=== PATIENT | male | born 2000 | race Caucasian/White ===

== ENCOUNTER 2018-03-19 16:32 | Inpatient (IN) | payer OTHER ==
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
[2018-03-19 17:28] LABS: PLATELET COUNT 218 10^3/uL (150-400)
[2018-03-19] MEDS ORDERED: OLANZapine DISINTEGR 5 MG TAB PO ONE ×2 (21:18→21:19)
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
--- NOTE | 2018-03-19 21:44 | ASMTTCLDSP ---
TLC Discharge Disposition Disposition: Answers: Admit Disposition Notes: Notes: In consultation with [facility] ED Physician, Filemon Florez MD and on-call Psychiatrist, John Levy both concurred that pt appears to meet 27-65 criteria regarding psychiatric hospitalization as pt appears to be at risk of harm to self due to a mental illness condition. Pt was given the 3[facility] prohibited belongings list while in the ED. Discharge Concerns/Recommendations: Notes: Pt admitted to [facility] Was patient given the Answers: Yes Inpatient Behavioral Health Prohibited Belongings List while in the ED? For inpatient John Levy admission, the following psychiatrist agreed to accept patient for admission to Behavioral Health ([facility]): Type of Hold: Answers: M1/72-hour Hold Hold initiated by: Answers: Court Order Date Signed: 03/19/2018 09:43 PM Electronically Signed By:Rosalinda Philip
[2018-03-20] MEDS ORDERED: MAGNESIUM HYDROXIDE 30 ML UDCUP PO PRN (00:08)
[2018-03-20] MEDS ORDERED: MAG HYDROX/AL HYDROX/SIMETH 30 ML UDCUP PO PRN (00:08)
[2018-03-20] MEDS ORDERED: NICOTINE POLACRILEX 2 MG GUM B PRN (00:08)
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
[2018-03-20] MEDS: OLANZapine DISINTEGR 10 MG TAB PO PRN ×2 (09:00→15:53)
[2018-03-20] MEDS: LORazepam 0.5 MG TAB PO PRN ×2 (09:00→15:53)
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
--- NOTE | 2018-03-20 14:23 | PDMN ---
Medical Necessity Medical necessity: Pt meets inpt criteria per MD order and [facility] [id number], Other Psychotic Disorders, Adult: Inpatient Care, 3 days. 17 y/o admitted w/ unspecified psychosis, on M1 hold due to being gravely disabled, requires inpt psychiatric hospitalization for current increased, acute agitiation and aggression.
--- NOTE | 2018-03-20 18:33 | BCON ---
INTERNAL MEDICINE CONSULTATION DATE OF CONSULTATION: 03/20/2018 REFERRING PHYSICIAN: John Levy MD REASON FOR REFERRAL: Medical clearance for inpatient behavioral health stay. HISTORY OF PRESENT ILLNESS: This patient came to the emergency department on a court-ordered M1 hold. His parents were concerned that he was becoming aggressive and was presenting a danger. He was admitted to the inpatient behavioral health unit for further psychiatric care. He is currently without any acute complaints. PAST MEDICAL HISTORY: He denies any history of medical illnesses or surgeries. MEDICATIONS: He was on no medications. SOCIAL HISTORY: He lives with his parents. He has not completed high school. He smokes marijuana. He denies tobacco or alcohol use. FAMILY HISTORY: Noncontributory. REVIEW OF SYSTEMS: He denies weight change. He has a good appetite. He denies nausea, vomiting, constipation or diarrhea. He denies any difficulty breathing and otherwise a 10-point review of systems is negative. PHYSICAL EXAM: VITAL SIGNS: Blood pressure is 124/72, heart rate is 83, respiratory rate is 14, oxygen saturation is 95% on room air. Temperature is 36.8 degrees centigrade. His weight is 63.5 kg for a body mass index of 21.3. GENERAL: This is a well-nourished, well-developed man who appears chronologic age, cooperative and in no acute distress. HEENT: Extraocular movements are intact. Pupils are equal, round, reactive to light. Mucous membranes are moist. Dentition is in good condition. NECK: Supple. HEART: Regular rate and rhythm with no murmurs, rubs or gallops. ABDOMEN: Benign. EXTREMITIES: There is no cyanosis, clubbing, or edema. NEUROLOGIC: He is alert and oriented x3. Cranial nerves 2-12 are grossly intact. There is no focal weakness and sensation is intact to light touch. LABORATORY STUDIES: CBC was overall normal with a slight decrement of eosinophils of no clinical significance. Serum chemistry revealed normal renal function and electrolytes, liver functions and lipid panel, hemoglobin A1c was normal at 5.2. Toxicology screen in the serum was negative for ethyl alcohol and urine was non-negative for marijuana, but otherwise negative for substances of abuse. ASSESSMENT/RECOMMENDATIONS: 1. Mental health issues pending further evaluation and management per psychiatry and the mental health team. 2. Marijuana use disorder. He might benefit from specific substance abuse counseling. I see no medical contraindications to this patient's continued stay on the inpatient behavioral health unit or to any psychiatric medications or procedures. Thank you very much for including me in the care of this patient and please do not hesitate to contact me or the hospitalist service should there be need for further medical evaluation. /[id number]/MODL MTDD
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
[2018-03-21] MEDS: OLANZapine DISINTEGR 10 MG TAB PO PRN (08:32)
[2018-03-21] MEDS: LORazepam 0.5 MG TAB PO PRN (08:32)
--- NOTE | 2018-03-21 12:18 | ASMTCMCOM ---
CM Note CM Note Notes: CC checked in with ct. Ct. has been staying in his room most of the time not engaging in unit activities or with other cts. Ct. appeared nerves and paranoid and was looking around while talking with CC. Ct. reported that his goals are to "get a job and get sober". He would like to get an apartment but when this CC discussed using [facility]" half-way upon discharge he said that he prefers to get back home. CC asked ct. if he spoke with his parents since his admission and he said that he doesn't want to speak with them. Date Signed: 03/21/2018 12:14 PM Electronically Signed By:Arlette Yuen
[2018-03-22] MEDS: OLANZapine DISINTEGR 10 MG TAB PO PRN ×2 (09:04→18:55)
[2018-03-22] MEDS: LORazepam 0.5 MG TAB PO PRN ×3 (09:04→18:54)
--- NOTE | 2018-03-22 09:05 | ASMTCMCOM ---
CM Note CM Note Notes: CC checked in with ct. while he was having breakfast. Ct. reported that he is doing OK and said that he is being discharged today. CC let ct. know that there is no talk about discharging him today and that the plan is to have him stay on the unit. Ct. became upset and wanted to know what's the reason he is not discharging even though his hold is up. CC explained that ct. is not yet stable enough to be discharged. CC discussed with ct. getting more engaged in groups and spending more time in the milieu but he said that he is not interested in doing that. Ct. escalated some and CC stopped the meeting. Ct. refused to sign a CHASE for parents. Date Signed: 03/22/2018 09:04 AM Electronically Signed By:Arlette Yuen
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
[2018-03-22] MEDS: OLANZapine 5 MG TAB PO SCH (18:58)
[2018-03-23] MEDS: LORazepam 0.5 MG TAB PO PRN ×3 (09:05→19:00)
[2018-03-23] MEDS: OLANZapine 5 MG TAB PO SCH ×4 (09:05→18:58)
--- NOTE | 2018-03-24 00:51 | SOAPPROG ---
SOAP Progress Note Assessment/Plan: Assessment: 17yo with hx of substance use and psychosis, admitted due to escalating agitation and aggression towards family and psychotic symptoms/behaviors. this is his first psychiatric hospitalization. 03/22/18 16:13 per staff, pt has been paranoid, guarded, wearing hoodie over head, isolative, not attending any groups, urinating in cups and leaving them around room. on M- 1. did take a prn zyprexa and ativan this am. mother contacted RN about pt calling and being threatening. case mgmt to f/ with m about this. pt was interviewed with security at door, and staff development educator present. he sat upright in bed for interview, kept hoodie on, eye contact was good but he often shifted gaze quickly and suspiciously toward male nurse, in paranoid hypervigilant manner, staring/glaring. possibly responding to internal stimuli although denied experiencing ah/vh or having any si/hi but also with no insight into reason for admission, did not note problems with urinating in cup, just stated he had to go often b/c of a "bladder problem", and angrily stated he did not feel he needed to be in the hospital, angry/hostile tone, angry/irritable affect, suspicious, guarded. no insight/poor jdgmt. A&O to person,place, situation. stated meds this am made him feel too groggy. pt was informed of his M-1 expiring this pm and of the options. he would like to be discharged. pt was informed the treatment providers did not feel he was clinically stable or safe for discharge. he was informed of being placed on a STC, and the certification as well as his rights incl right to legal representation were explained. pt was angry and asked to call his mother. PLAN: -placed on STC -cont on assault awareness and safety precautions -schedule zyprexa 5mg BID to avoid oversedation and encourage compliance, but will leave 5-10mg as prn due to his paranoia/psychosis. cont ativan prn. -consider phone restriction if making threats. mother apparently wanted unit to know about his calls, but presently fine with him still calling her. Objective: Vital Signs Temp Pulse Resp BP Pulse Ox 36.8 C 120 H 16 136/85 H 94 03/19/18 23:05 03/22/18 06:00 03/22/18 06:00 03/22/18 06:00 03/22/18 06:00 - Time Spent With Patient Time Spent With Patient: 20min - Pending Discharge Pending Discharge Within 24 Hours: No Pending Discharge Within 48 Hours: No ICD10 Worksheet Patient Problems: Problems Problem Status Onset Psychosis Acute
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
[2018-03-24] MEDS: OLANZapine 5 MG TAB PO SCH (08:34)
--- NOTE | 2018-03-24 11:07 | SOAPPROG ---
SOAP Progress Note Assessment/Plan: Assessment: Unspecified Psychosis. R/O Schizophrenia. No improvement noted. (see subjective/objective note). Patient is not safe to discharge at this time as patient continues to exhibit signs of psychosis, and express psychosis symptoms. Patient requires continued inpatient care because of current psychosis, and requires inpatient level of care to stabilize in order to no longer be gravely disabled due to mental illness. Patient could benefit from continued inpatient hospitalization for crisis stabilization, safety, and medication evaluation. Patient exhibits inability to provide for himself, unable communicate his basic needs, neglecting self-care, withdrawn from social interactions, inability to test reality, and currently shows inability to maintain any appropriate aspect of personal responsibility as an adult. Plan: 1. Psychotropic medications: After reviewing options, risks, and benefits patient agrees to continue current medications; agrees to increase HS Zyprexa to 10 mg. No other medication changes at this time as more time is needed to determine ongoing tolerability and efficacy. Plan is to continue to observe patient for response and side effects from medications, and ongoing monitoring and evaluation. 2. Review with patient informed consent and recommendations for psychotropic medication treatment listed below 3. Labs: no additional labs at this time 4. Therapy: continue milieu and group therapy 5. Further investigation including gathering information from patients relatives and review of past case records to inform treatment plan. 6. Safety/Wellness plan and follow-up outpatient appointments to be established prior to discharge. Next steps are for patient to meet with rn coronary care unit to plan a safe discharge plan and establish outpatient services for ongoing treatment. 7. Confer with inpatient treatment team regarding treatment plan. 8. Psychosocial stressors addressed through nurse case management 9. Legal status: [facility] 10. Consider discharge next week if patient is in stable condition, safe, and has a safe discharge plan. PSYCHOTROPIC MEDICATION TREATMENT INFORMED CONSENT and RECOMMENDATIONS: Review nature of condition, diagnosis, and prognosis. Review nature and purpose of psychotropic medication treatment. Review type of psychotropic medications being ordered. Review risk and benefits of psychotropic medication treatment. Review probable length of time patient will need to take medications. Review risk and benefits of not undergoing psychotropic medication treatment. Review alternative treatments to psychotropic medications. Review psychotropic medications contraindications, drug-drug interactions, side effects, and importance of reporting any side effects to a psychiatric provider or nurse during inpatient hospitalization, and upon discharge to patients psychiatric outpatient provider, primary care provider, or other health hospice care consultant. Review importance of asking a nurse, psychiatric provider, or primary care provider any questions or problems concerning the psychotropic medications. Verify patient understands the information that has been provided, and understands, accepts, and agrees to psychotropic medications. Review patients safety plan and importance of patient to report to staff while hospitalized if patient is ever a danger to self/others, or unable to care for self, and upon discharge, the importance for patient to contact [facility] or [facility], or go to the nearest emergency room, if patient is ever a danger to self/others, or unable to care for self. Recommend that upon discharge patient establish medication management treatment with a psychiatric provider, establishes routine therapy appointments, and follow-up with primary care provider. Verify patient understands and agrees to these recommendations. 03/24/18 11:09 Subjective: Following up with patient for evaluation of psychosis and safety. Patient reports, "Feeling better, a lot more calm and I have a plan to get out of here, a lot more focus and calm and not as paranoid. Still think my mom was able to mimic my ex-girl friends voice when she was talking to my dog. My mom would be talking to my dog and using my ex-girlfriends voice." Patient expresses the following psychiatric symptoms moderate anxiety. Patient reports taking medications as prescribed, and describes response to medications as okay. Patient does not report undesirable side effects from the medications, and agrees to continue current medications. Patient agrees to increase HS dose Zyprexa to 10 mg. Objective: Vital Signs Temp Pulse Resp BP Pulse Ox 36.8 C 120 H 16 136/85 H 94 03/19/18 23:05 03/22/18 06:00 03/22/18 06:00 03/22/18 06:00 03/22/18 06:00 NURSING REPORT: Consulted with nursing for update on patients progress in treatment. Nurses report patient is not engaged in treatment, is not attending groups, slept 8 hours, expresses the following psychiatric symptoms: severe anxiety, exhibits the following psychiatric symptoms: agitated, delusional, withdrawn; is eating all meals; staff reports patient continues to urinate in drinking cups; is agreeable to medications and taking as prescribed with no report of side effects, with no s/s of EPS/akathisia, and denies SI/HI, denies A /V hallucinations, and denies delusions. MSE: The patient is a well-nourished male looking stated chronological age. Attire is appropriate and dress is casual. Grooming status is appropriate. Ambulation is independent. Gait is normal and coordinated. Posture is normal and relaxed. Eye contact is inappropriate and avoided. Motor activity is appropriate with purposeful, organized, coordinated movements; with no involuntary movements. Attitude is cooperative. Patient appears fairly attentive and relates well to this interviewer. Language production is spontaneous. R/R/V normal. Articulation is clear. Patient reports mood as okay, with incongruent, constricted affect. Patients thought process non- linear and illogical. Patient does not report suicidal/homicidal thoughts, ideas, or plans. Patient denies auditory, visual hallucinations. Patient denies delusions. Patient does appear to be attending to internal stimuli. Patients attention and concentration are poor. Patient is oriented to person, place, and time. Patient appears to be a poor historian. Patients insight and judgment poor. - Time Spent With Patient Time Spent With Patient: 15 minutes, met with patient individually. - Pending Discharge Pending Discharge Within 24 Hours: No Pending Discharge Within 48 Hours: No ICD10 Worksheet Patient Problems: Problems Problem Status Onset Psychosis Acute
--- NOTE | 2018-03-24 13:26 | ASMTCMCOM ---
CM Note CM Note Notes: CC contacted [facility] at [phone] to discuss status of client as well as schedule out a family meeting to gather additional data/collateral information. Family meeting is set for Saturday (03/26/18) at 11:30am with provider, client and family. Date Signed: 03/24/2018 01:22 PM Electronically Signed By:Fredy Espinoza
[2018-03-24] MEDS: LORazepam 0.5 MG TAB PO PRN (19:11)
[2018-03-24] MEDS: MELATONIN 3 MG TAB PO PRN (19:11)
[2018-03-24] MEDS ORDERED: OLANZapine 10 MG TAB PO SCH (21:00)
[2018-03-25] MEDS: OLANZapine DISINTEGR 10 MG TAB PO PRN (08:35)
[2018-03-25] MEDS: LORazepam 0.5 MG TAB PO PRN ×2 (08:35→21:20)
[2018-03-25] MEDS ORDERED: OLANZapine 10 MG TAB PO SCH ×3 (10:49→21:00)
--- NOTE | 2018-03-25 10:53 | SOAPPROG ---
SOAP Progress Note Assessment/Plan: Assessment: Unspecified Psychosis. R/O Schizophrenia. No improvement noted. (see subjective/objective note). Patient is not safe to discharge at this time as patient continues to exhibit signs of psychosis, and express psychosis symptoms. Patient requires continued inpatient care because of current psychosis, and requires inpatient level of care to stabilize in order to no longer be gravely disabled due to mental illness. Patient could benefit from continued inpatient hospitalization for crisis stabilization, safety, and medication evaluation. Patient exhibits inability to provide for himself, unable communicate his basic needs, neglecting self-care, withdrawn from social interactions, inability to test reality, and currently shows inability to maintain any appropriate aspect of personal responsibility as an adult. Plan: 1. Psychotropic medications: After reviewing options, risks, and benefits patient agrees to continue current medications. No medication changes at this time as more time is needed to determine ongoing tolerability and efficacy. Plan is to continue to observe patient for response and side effects from medications, and ongoing monitoring and evaluation. 2. Review with patient informed consent and recommendations for psychotropic medication treatment listed below 3. Labs: no additional labs at this time 4. Therapy: continue milieu and group therapy 5. Further investigation including gathering information from patients relatives and review of past case records to inform treatment plan. 6. Safety/Wellness plan and follow-up outpatient appointments to be established prior to discharge. Next steps are for patient to meet with aged or disabled carer to plan a safe discharge plan and establish outpatient services for ongoing treatment. 7. Confer with inpatient treatment team regarding treatment plan. 8. Psychosocial stressors addressed through showcase maker 9. Legal status: [facility] 10. Consider discharge next week if patient is in stable condition, safe, and has a safe discharge plan. PSYCHOTROPIC MEDICATION TREATMENT INFORMED CONSENT and RECOMMENDATIONS: Review nature of condition, diagnosis, and prognosis. Review nature and purpose of psychotropic medication treatment. Review type of psychotropic medications being ordered. Review risk and benefits of psychotropic medication treatment. Review probable length of time patient will need to take medications. Review risk and benefits of not undergoing psychotropic medication treatment. Review alternative treatments to psychotropic medications. Review psychotropic medications contraindications, drug-drug interactions, side effects, and importance of reporting any side effects to a psychiatric provider or nurse during inpatient hospitalization, and upon discharge to patients psychiatric outpatient provider, primary care provider, or other health animal care supervisor. Review importance of asking a nurse, psychiatric provider, or primary care provider any questions or problems concerning the psychotropic medications. Verify patient understands the information that has been provided, and understands, accepts, and agrees to psychotropic medications. Review patients safety plan and importance of patient to report to staff while hospitalized if patient is ever a danger to self/others, or unable to care for self, and upon discharge, the importance for patient to contact [facility] or [facility], or go to the nearest emergency room, if patient is ever a danger to self/others, or unable to care for self. Recommend that upon discharge patient establish medication management treatment with a psychiatric provider, establishes routine therapy appointments, and follow-up with primary care provider. Verify patient understands and agrees to these recommendations. 03/25/18 10:54 Subjective: Following up with patient for evaluation of psychosis and safety. Patient reports, "Feeling okay, just tired." Patient expresses the following psychiatric symptoms moderate anxiety. Patient reports taking medications as prescribed, and describes response to medications as okay. Patient does not report undesirable side effects from the medications, and agrees to continue current medications. Patient reports not sleeping well last night, and reports having difficulty staying asleep. Objective: Vital Signs Temp Pulse Resp BP Pulse Ox 36.8 C 120 H 16 136/85 H 94 03/19/18 23:05 03/22/18 06:00 03/22/18 06:00 03/22/18 06:00 03/22/18 06:00 NURSING REPORT: Consulted with nursing for update on patients progress in treatment. Nurses report patient is not engaged in treatment, is not attending groups, slept 4 hours, expresses the following psychiatric symptoms: severe anxiety, exhibits the following psychiatric symptoms: paranoid, agitated, withdrawn, disorganized; is eating all meals; staff reports patient continues to urinate in drinking cups, was up middle of the night staring out window in his room; is agreeable to medications and taking as prescribed with no report of side effects, with no s/s of EPS/akathisia, and denies SI/HI, denies A/V hallucinations, and denies delusions. MSE: The patient is a well-nourished male looking stated chronological age. Attire is appropriate and dress is casual. Grooming status is appropriate. Ambulation is independent. Gait is normal and coordinated. Posture is normal and relaxed. Eye contact is inappropriate and avoided. Motor activity is appropriate with purposeful, organized, coordinated movements; with no involuntary movements. Attitude is cooperative. Patient appears fairly attentive and relates well to this interviewer. Language production is spontaneous. R/R/V normal. Articulation is clear. Patient reports mood as okay, with incongruent, constricted affect. Patients thought process non- linear and illogical, disorganized. Patient does not report suicidal/homicidal thoughts, ideas, or plans. Patient denies auditory, visual hallucinations. Patient reports delusions. Patient does appear to be attending to internal stimuli. Patients attention and concentration are poor. Patient is oriented to person, place, and time. Patient appears to be a poor historian. Patients insight and judgment poor. - Time Spent With Patient Time Spent With Patient: 15 minutes, met with patient individually. - Pending Discharge Pending Discharge Within 24 Hours: No Pending Discharge Within 48 Hours: No ICD10 Worksheet Patient Problems: Problems Problem Status Onset Psychosis Acute
[2018-03-25] MEDS: MELATONIN 3 MG TAB PO PRN (21:20)
[2018-03-26] MEDS ORDERED: LORazepam 0.5 MG TAB PO PRN (06:37)
[2018-03-26] MEDS ORDERED: OLANZapine 10 MG TAB PO SCH (06:37)
--- NOTE | 2018-03-26 08:48 | SOAPPROG ---
SOAP Progress Note Assessment/Plan: Assessment: Unspecified Psychosis. R/O Schizophrenia. No improvement noted. (see subjective/objective note). Patient is not safe to discharge at this time as patient continues to exhibit signs of psychosis, and express psychosis symptoms. Patient requires continued inpatient care because of current psychosis, and requires inpatient level of care to stabilize in order to no longer be gravely disabled due to mental illness. Patient could benefit from continued inpatient hospitalization for crisis stabilization, safety, and medication evaluation. Patient exhibits inability to provide for himself, unable communicate his basic needs, neglecting self-care, withdrawn from social interactions, inability to test reality, and currently shows inability to maintain any appropriate aspect of personal responsibility as an adult. Plan: 1. Psychotropic medications: After reviewing options, risks, and benefits patient agrees to continue current medications. No medication changes at this time as more time is needed to determine ongoing tolerability and efficacy. Plan is to continue to observe patient for response and side effects from medications, and ongoing monitoring and evaluation. 2. Review with patient informed consent and recommendations for psychotropic medication treatment listed below 3. Labs: no additional labs at this time 4. Therapy: continue milieu and group therapy 5. Further investigation including gathering information from patients relatives and review of past case records to inform treatment plan. 6. Safety/Wellness plan and follow-up outpatient appointments to be established prior to discharge. Next steps are for patient to meet with physician locums urgent care to plan a safe discharge plan and establish outpatient services for ongoing treatment. 7. Confer with inpatient treatment team regarding treatment plan. 8. Psychosocial stressors addressed through pillowcase maker 9. Legal status: [facility] 10. Consider discharge next week if patient is in stable condition, safe, and has a safe discharge plan. PSYCHOTROPIC MEDICATION TREATMENT INFORMED CONSENT and RECOMMENDATIONS: Review nature of condition, diagnosis, and prognosis. Review nature and purpose of psychotropic medication treatment. Review type of psychotropic medications being ordered. Review risk and benefits of psychotropic medication treatment. Review probable length of time patient will need to take medications. Review risk and benefits of not undergoing psychotropic medication treatment. Review alternative treatments to psychotropic medications. Review psychotropic medications contraindications, drug-drug interactions, side effects, and importance of reporting any side effects to a psychiatric provider or nurse during inpatient hospitalization, and upon discharge to patients psychiatric outpatient provider, primary care provider, or other health medicare compliance auditor. Review importance of asking a nurse, psychiatric provider, or primary care provider any questions or problems concerning the psychotropic medications. Verify patient understands the information that has been provided, and understands, accepts, and agrees to psychotropic medications. Review patients safety plan and importance of patient to report to staff while hospitalized if patient is ever a danger to self/others, or unable to care for self, and upon discharge, the importance for patient to contact [facility] or [facility], or go to the nearest emergency room, if patient is ever a danger to self/others, or unable to care for self. Recommend that upon discharge patient establish medication management treatment with a psychiatric provider, establishes routine therapy appointments, and follow-up with primary care provider. Verify patient understands and agrees to these recommendations. 03/26/18 08:46 Subjective: Following up with patient for evaluation of psychosis and safety. Patient reports, "I don't want to talk to you." Objective: Vital Signs Temp Pulse Resp BP Pulse Ox 36.8 C 120 H 16 136/85 H 94 03/19/18 23:05 03/22/18 06:00 03/22/18 06:00 03/22/18 06:00 03/22/18 06:00 NURSING REPORT: Consulted with nursing for update on patients progress in treatment. Nurses report patient is not engaged in treatment, is not attending groups, slept 8 hours, expresses the following psychiatric symptoms: severe anxiety, exhibits the following psychiatric symptoms: paranoid, withdrawn; is eating all meals; staff reports patient continues to urinate in urinal and store in room; is agreeable to medications and taking as prescribed with no report of side effects, with no s/s of EPS/akathisia, and denies SI/HI, denies A /V hallucinations, and denies delusions. MSE: The patient is a well-nourished male looking stated chronological age. Attire is appropriate and dress is casual. Grooming status is appropriate. Ambulation is independent. Gait is normal and coordinated. Posture is normal and relaxed. Eye contact is inappropriate and avoided. Motor activity is appropriate with purposeful, organized, coordinated movements; with no involuntary movements. Attitude is uncooperative. Patient appears distractible and does not relate well to this interviewer. Language production is spontaneous. R/R/V normal. Articulation is clear, with irritable, angry tone. Patient reports mood as okay, with incongruent, constricted affect. Patients thought process non-linear and illogical, disorganized. Patient does not report suicidal/homicidal thoughts, ideas, or plans. Patient denies auditory, visual hallucinations. Patient reports delusions. Patient does appear to be attending to internal stimuli. Patients attention and concentration are poor. Patient is oriented to person, place, and time. Patient appears to be a poor historian. Patients insight and judgment poor. - Time Spent With Patient Time Spent With Patient: 15 minutes, met with patient individually. - Pending Discharge Pending Discharge Within 24 Hours: No Pending Discharge Within 48 Hours: No ICD10 Worksheet Patient Problems: Problems Problem Status Onset Psychosis Acute
[2018-03-26] MEDS ORDERED: RISPERIDONE 1 MG ODT TAB SL ONE (11:01)
--- NOTE | 2018-03-26 12:34 | ASMTCMCOM ---
CM Note CM Note Notes: Client joined the treatment team meeting remained quite with no eye contact during interaction and eventually walked out of the meeting. Additionally, client allowed family meeting with [facility] and [facility], in which he requested this CC not participate. Client appears to be paranoid most of the time while isolating to his room and having minimal or no interaction with peers or staff. Provider suggested a trial of another medication starting today, etc. Date Signed: 03/26/2018 12:33 PM Electronically Signed By:Fredy Espinoza
[2018-03-26] MEDS: LORazepam 0.5 MG TAB PO PRN ×2 (17:45→22:03)
[2018-03-26] MEDS: MELATONIN 3 MG TAB PO PRN (20:55)
[2018-03-26] MEDS ORDERED: OLANZapine DISINTEGR 10 MG TAB PO SCH ×2 (21:00)
[2018-03-27] MEDS ORDERED: OLANZapine DISINTEGR 10 MG TAB PO SCH (06:34)
[2018-03-27] MEDS ORDERED: RISPERIDONE 2 MG ODT TAB SL SCH (09:00)
--- NOTE | 2018-03-27 09:04 | SOAPPROG ---
SOAP Progress Note Assessment/Plan: Assessment: Unspecified Psychosis. R/O Schizophrenia. No improvement noted. (see subjective/objective note). Patient is not safe to discharge at this time as patient continues to exhibit signs of psychosis, and express psychosis symptoms. Patient requires continued inpatient care because of current psychosis, and requires inpatient level of care to stabilize in order to no longer be gravely disabled due to mental illness. Patient could benefit from continued inpatient hospitalization for crisis stabilization, safety, and medication evaluation. Patient exhibits inability to provide for himself, unable communicate his basic needs, neglecting self-care, withdrawn from social interactions, inability to test reality, and currently shows inability to maintain any appropriate aspect of personal responsibility as an adult. Plan: 1. Psychotropic medications: After reviewing options, risks, and benefits patient agrees to continue current medications and agrees to increase Risperidone M-tab to 2 mg SL QD and decrease Zyprexa Zydis HS to 5 mg. No other medication changes at this time as more time is needed to determine ongoing tolerability and efficacy. Plan is to continue to observe patient for response and side effects from medications, and ongoing monitoring and evaluation. 2. Review with patient informed consent and recommendations for psychotropic medication treatment listed below 3. Labs: no additional labs at this time 4. Therapy: continue milieu and group therapy 5. Further investigation including gathering information from patients relatives and review of past case records to inform treatment plan. 6. Safety/Wellness plan and follow-up outpatient appointments to be established prior to discharge. Next steps are for patient to meet with restorative care technician to plan a safe discharge plan and establish outpatient services for ongoing treatment. 7. Confer with inpatient treatment team regarding treatment plan. 8. Psychosocial stressors addressed through pillowcase maker 9. Legal status: [facility] 10. Consider discharge next week if patient is in stable condition, safe, and has a safe discharge plan. PSYCHOTROPIC MEDICATION TREATMENT INFORMED CONSENT and RECOMMENDATIONS: Review nature of condition, diagnosis, and prognosis. Review nature and purpose of psychotropic medication treatment. Review type of psychotropic medications being ordered. Review risk and benefits of psychotropic medication treatment. Review probable length of time patient will need to take medications. Review risk and benefits of not undergoing psychotropic medication treatment. Review alternative treatments to psychotropic medications. Review psychotropic medications contraindications, drug-drug interactions, side effects, and importance of reporting any side effects to a psychiatric provider or nurse during inpatient hospitalization, and upon discharge to patients psychiatric outpatient provider, primary care provider, or other health plant health care technician. Review importance of asking a nurse, psychiatric provider, or primary care provider any questions or problems concerning the psychotropic medications. Verify patient understands the information that has been provided, and understands, accepts, and agrees to psychotropic medications. Review patients safety plan and importance of patient to report to staff while hospitalized if patient is ever a danger to self/others, or unable to care for self, and upon discharge, the importance for patient to contact [facility] or [facility], or go to the nearest emergency room, if patient is ever a danger to self/others, or unable to care for self. Recommend that upon discharge patient establish medication management treatment with a psychiatric provider, establishes routine therapy appointments, and follow-up with primary care provider. Verify patient understands and agrees to these recommendations. 03/27/18 09:04 Subjective: Following up with patient for evaluation of psychosis and safety. Patient reports, "Can you please leave, don't want to talk to you." Objective: Vital Signs Temp Pulse Resp BP Pulse Ox 36.8 C 120 H 16 136/85 H 94 03/19/18 23:05 03/22/18 06:00 03/22/18 06:00 03/22/18 06:00 03/22/18 06:00 NURSING REPORT: Consulted with nursing for update on patients progress in treatment. Nurses report patient is not engaged in treatment, is not attending groups, slept 6 hours, expresses the following psychiatric symptoms: severe anxiety, exhibits the following psychiatric symptoms: paranoid, withdrawn; is eating all meals; staff reports patient continues to urinate in urinal and store in room, patient found yesterday urinating in urinal in library; is agreeable to medications and taking as prescribed with no report of side effects , with no s/s of EPS/akathisia, and denies SI/HI, denies A/V hallucinations, and denies delusions. MSE: The patient is a well-nourished male looking stated chronological age. Attire is appropriate and dress is casual. Grooming status is appropriate. Ambulation is independent. Gait is normal and coordinated. Posture is normal and relaxed. Eye contact is inappropriate and avoided. Motor activity is appropriate with purposeful, organized, coordinated movements; with no involuntary movements. Attitude is uncooperative. Patient appears distractible and does not relate well to this interviewer. Language production is spontaneous. R/R/V normal. Articulation is clear, with irritable, angry tone. Patient reports mood as okay, with incongruent, constricted affect. Patients thought process non-linear and illogical, disorganized. Patient does not report suicidal/homicidal thoughts, ideas, or plans. Patient denies auditory, visual hallucinations. Patient reports delusions. Patient does appear to be attending to internal stimuli. Patients attention and concentration are poor. Patient is oriented to person, place, and time. Patient appears to be a poor historian. Patients insight and judgment poor. - Time Spent With Patient Time Spent With Patient: 15 minutes, met with patient individually. - Pending Discharge Pending Discharge Within 24 Hours: No Pending Discharge Within 48 Hours: No ICD10 Worksheet Patient Problems: Problems Problem Status Onset Psychosis Acute
[2018-03-27] MEDS: LORazepam 0.5 MG TAB PO PRN ×3 (09:13→21:03)
[2018-03-27] MEDS: MELATONIN 3 MG TAB PO PRN (20:23)
[2018-03-27] MEDS ORDERED: OLANZapine DISINTEGR 5 MG TAB PO SCH (21:00)
[2018-03-28] MEDS: LORazepam 0.5 MG TAB PO PRN ×2 (08:46→20:36)
[2018-03-28] MEDS: RISPERIDONE 1 MG ODT TAB SL SCH (08:46)
--- NOTE | 2018-03-28 11:14 | SOAPPROG ---
SOAP Progress Note Assessment/Plan: Assessment: Unspecified Psychosis. R/O Schizophrenia. No improvement noted. (see subjective/objective note). Patient is not safe to discharge at this time as patient continues to exhibit signs of psychosis, and express psychosis symptoms. Patient requires continued inpatient care because of current psychosis, and requires inpatient level of care to stabilize in order to no longer be gravely disabled due to mental illness. Patient could benefit from continued inpatient hospitalization for crisis stabilization, safety, and medication evaluation. Patient exhibits inability to provide for himself, unable communicate his basic needs, neglecting self-care, withdrawn from social interactions, inability to test reality, and currently shows inability to maintain any appropriate aspect of personal responsibility as an adult. Plan: 1. Psychotropic medications: After reviewing options, risks, and benefits patient agrees to continue current medications and agrees to increase Risperidone M-tab to 3 mg SL QD and discontinue Zyprexa Zydis HS to 5 mg. No other medication changes at this time as more time is needed to determine ongoing tolerability and efficacy. Plan is to continue to observe patient for response and side effects from medications, and ongoing monitoring and evaluation. 2. Review with patient informed consent and recommendations for psychotropic medication treatment listed below 3. Labs: no additional labs at this time 4. Therapy: continue milieu and group therapy 5. Further investigation including gathering information from patients relatives and review of past case records to inform treatment plan. 6. Safety/Wellness plan and follow-up outpatient appointments to be established prior to discharge. Next steps are for patient to meet with director of patient care to plan a safe discharge plan and establish outpatient services for ongoing treatment. 7. Confer with inpatient treatment team regarding treatment plan. 8. Psychosocial stressors addressed through counseling case manager 9. Legal status: [facility] 10. Consider discharge next week if patient is in stable condition, safe, and has a safe discharge plan. PSYCHOTROPIC MEDICATION TREATMENT INFORMED CONSENT and RECOMMENDATIONS: Review nature of condition, diagnosis, and prognosis. Review nature and purpose of psychotropic medication treatment. Review type of psychotropic medications being ordered. Review risk and benefits of psychotropic medication treatment. Review probable length of time patient will need to take medications. Review risk and benefits of not undergoing psychotropic medication treatment. Review alternative treatments to psychotropic medications. Review psychotropic medications contraindications, drug-drug interactions, side effects, and importance of reporting any side effects to a psychiatric provider or nurse during inpatient hospitalization, and upon discharge to patients psychiatric outpatient provider, primary care provider, or other health healthcare social worker. Review importance of asking a nurse, psychiatric provider, or primary care provider any questions or problems concerning the psychotropic medications. Verify patient understands the information that has been provided, and understands, accepts, and agrees to psychotropic medications. Review patients safety plan and importance of patient to report to staff while hospitalized if patient is ever a danger to self/others, or unable to care for self, and upon discharge, the importance for patient to contact [facility] or [facility], or go to the nearest emergency room, if patient is ever a danger to self/others, or unable to care for self. Recommend that upon discharge patient establish medication management treatment with a psychiatric provider, establishes routine therapy appointments, and follow-up with primary care provider. Verify patient understands and agrees to these recommendations. 03/28/18 11:14 Subjective: Following up with patient for evaluation of psychosis and safety. Patient reports, "Doing okay. Just want to know when I can discharge. I know I need to try to get along with everyone." Patient reports no side effects from current medications, and agrees to continue current medications, agrees to increase Risperidone M-tab to 3 mg and discontinue Zyprexa HS. Objective: Vital Signs Temp Pulse Resp BP Pulse Ox 36.8 C 120 H 16 136/85 H 94 03/19/18 23:05 03/22/18 06:00 03/22/18 06:00 03/22/18 06:00 03/22/18 06:00 NURSING REPORT: Consulted with nursing for update on patients progress in treatment. Nurses report patient is not engaged in treatment, is not attending groups, slept 6 hours, expresses the following psychiatric symptoms: severe anxiety, exhibits the following psychiatric symptoms: paranoid, withdrawn; is eating all meals; staff reports patient continues to urinate in urinal and store in room; is agreeable to medications and taking as prescribed with no report of side effects, with no s/s of EPS/akathisia, and denies SI/HI, denies A /V hallucinations, and denies delusions. RN NOTE FROM 03/27/18: Patient was present in milieu for portions of shift, pt is withdrawn with hoodie of sweatshirt up. Pt still continues to machine spreader corners of room in the dark. Pt continues to utilize urinal in his room. Patient requested PRN Ativan twice this shift. MSE: The patient is a well-nourished male looking stated chronological age. Attire is appropriate and dress is casual. Grooming status is appropriate. Ambulation is independent. Gait is normal and coordinated. Posture is normal and relaxed. Eye contact is inappropriate and avoided. Motor activity is appropriate with purposeful, organized, coordinated movements; with no involuntary movements. Attitude is uncooperative. Patient appears distractible and does not relate well to this interviewer. Language production is spontaneous. R/R/V normal. Articulation is clear, with irritable, angry tone. Patient reports mood as okay, with incongruent, constricted affect. Patients thought process non-linear and illogical, disorganized. Patient does not report suicidal/homicidal thoughts, ideas, or plans. Patient denies auditory, visual hallucinations. Patient reports delusions. Patient does appear to be attending to internal stimuli. Patients attention and concentration are poor. Patient is oriented to person, place, and time. Patient appears to be a poor historian. Patients insight and judgment poor. - Time Spent With Patient Time Spent With Patient: 15 minutes, met with patient individually. - Pending Discharge Pending Discharge Within 24 Hours: No Pending Discharge Within 48 Hours: No ICD10 Worksheet Patient Problems: Problems Problem Status Onset Psychosis Acute
--- NOTE | 2018-03-28 11:26 | ASMTBHDC ---
Notes Note: Notes: CC spoke with Taisha at [facility] who reported that they did not receive the referral faxed to them. Their fax number is [phone]. Direct phone number to schedule the appointment is [phone]. Per Taisha they are able to offer appointments within 24 hrs as needed. Date Signed: 03/28/2018 11:26 AM Electronically Signed By:Arlette Yuen
--- NOTE | 2018-03-28 12:04 | ASMTCMCOM ---
CM Note CM Note Notes: CC checked in with ct. He was in bed but agreed to come out of his room. Ct. reported that he feels very tired and said "I feel there's a lot of weight on me". He was not able to elaborate further. Affect is very flat. CC asked ct. about participating in groups and he has been saying that he participate in some especially in the afternoon. He was given a schedule of the groups, per his request. Date Signed: 03/28/2018 12:04 PM Electronically Signed By:Arlette Yuen
[2018-03-28] MEDS: MELATONIN 3 MG TAB PO PRN (20:36)
[2018-03-29] MEDS: RISPERIDONE 1 MG ODT TAB SL SCH (08:20)
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
[2018-03-29] MEDS: LORazepam 0.5 MG TAB PO PRN ×2 (15:44→20:13)
[2018-03-29] MEDS: MELATONIN 3 MG TAB PO PRN (20:01)
[2018-03-29] MEDS: risperiDONE 0.5 MG TAB PO PRN ×2 (20:01→21:47)
[2018-03-30] MEDS: RISPERIDONE 1 MG ODT TAB SL SCH (08:33)
[2018-03-30] MEDS: LORazepam 0.5 MG TAB PO PRN (15:04)
[2018-03-30] MEDS: MELATONIN 3 MG TAB PO PRN (21:12)
[2018-03-30] MEDS: risperiDONE 0.5 MG TAB PO PRN (21:12)
--- NOTE | 2018-03-30 21:54 | SOAPPROG ---
SOAP Progress Note Assessment/Plan: Assessment: 03/30/18 14:58 per staff, slept 7hr. has been noted to be more conversant and less tense overall. denied any complaints. no med s/e except thinks medication "making me depressed ". briefly interviewed in milieu. MSE: casually dressed. still with hoodie over head. fair e/c. nml speech rate/ vol. more readily engaging, affect restricted, not noted hypervigilant as last week. was expressing paranoid thoughts/ ideas of reference about his mother yesterday. and paranoid feelings in group setting. denied AH/VH and did not appear responding to int stim. denied SI or thoughts to harm others. poor insight, impaired jdgmt. PLAN: -has STC hearing this week. ambivalent. wants to leave hospital but worried about court. Consider having pt stipulate? Would be good if STC could txf to community to help keep him in treatment, francesco given his lack of insight and questionable motivation for continued outpt treatment. -added Risperdal 0.5mg bid prn to 3mg qday. not using prn. monitor for any EPS at higher dose. consider HALL? -monitor use of prn Ativan. using 2-3mg/day, used 2mg total yesterday. consider decr to 0.5mg -cont education about THC and psychosis. WEALTH MANAGEMENT ADVISOR student provided with some reading material yesterday. Has easy access from parents' home, at neighbors' [employer] house. -ensure attendance in groups perhaps q shift to monitor readiness for d/c. pt continued to express paranoia about mother and in general about peers (see note 2/2). -consider change risperdal to hs dosing. f/u on feelings of "depressed" he is attributing to medication -note elevated HR 03/22, has refused VS since. change to daily during day when awake since refuses at 6am. Note Risperdal may cause tachycardia. Objective: Vital Signs Temp Pulse Resp BP Pulse Ox 36.8 C 120 H 16 136/85 H 94 03/19/18 23:05 03/22/18 06:00 03/22/18 06:00 03/22/18 06:00 03/22/18 06:00 - Time Spent With Patient Time Spent With Patient: 10min - Pending Discharge Pending Discharge Within 24 Hours: No Pending Discharge Within 48 Hours: No ICD10 Worksheet Patient Problems: Problems Problem Status Onset Psychosis Acute
[2018-03-31] MEDS ORDERED: LORazepam 0.5 MG TAB PO PRN (06:55)
--- NOTE | 2018-03-31 08:22 | SOAPPROG ---
SOAP Progress Note Assessment/Plan: Assessment: Unspecified Psychosis. R/O Schizophrenia. No improvement noted. (see subjective/objective note). Patient is not safe to discharge at this time as patient continues to exhibit signs of psychosis, and express psychosis symptoms. Patient requires continued inpatient care because of current psychosis, and requires inpatient level of care to stabilize in order to no longer be gravely disabled due to mental illness. Patient could benefit from continued inpatient hospitalization for crisis stabilization, safety, and medication evaluation. Patient exhibits inability to provide for himself, unable communicate his basic needs, neglecting self-care, withdrawn from social interactions, inability to test reality, and currently shows inability to maintain any appropriate aspect of personal responsibility as an adult. Plan: 1. Psychotropic medications: After reviewing options, risks, and benefits patient agrees to continue current medications and agrees to increase Risperidone M-tab to 4 mg SL QD. No other medication changes at this time as more time is needed to determine ongoing tolerability and efficacy. Plan is to continue to observe patient for response and side effects from medications, and ongoing monitoring and evaluation. 2. Review with patient informed consent and recommendations for psychotropic medication treatment listed below 3. Labs: no additional labs at this time 4. Therapy: continue milieu and group therapy 5. Further investigation including gathering information from patients relatives and review of past case records to inform treatment plan. 6. Safety/Wellness plan and follow-up outpatient appointments to be established prior to discharge. Next steps are for patient to meet with intensive care medicine specialist to plan a safe discharge plan and establish outpatient services for ongoing treatment. 7. Confer with inpatient treatment team regarding treatment plan. 8. Psychosocial stressors addressed through major case detective 9. Legal status: [facility] 10. Consider discharge next week if patient is in stable condition, safe, and has a safe discharge plan. PSYCHOTROPIC MEDICATION TREATMENT INFORMED CONSENT and RECOMMENDATIONS: Review nature of condition, diagnosis, and prognosis. Review nature and purpose of psychotropic medication treatment. Review type of psychotropic medications being ordered. Review risk and benefits of psychotropic medication treatment. Review probable length of time patient will need to take medications. Review risk and benefits of not undergoing psychotropic medication treatment. Review alternative treatments to psychotropic medications. Review psychotropic medications contraindications, drug-drug interactions, side effects, and importance of reporting any side effects to a psychiatric provider or nurse during inpatient hospitalization, and upon discharge to patients psychiatric outpatient provider, primary care provider, or other health care management assistant. Review importance of asking a nurse, psychiatric provider, or primary care provider any questions or problems concerning the psychotropic medications. Verify patient understands the information that has been provided, and understands, accepts, and agrees to psychotropic medications. Review patients safety plan and importance of patient to report to staff while hospitalized if patient is ever a danger to self/others, or unable to care for self, and upon discharge, the importance for patient to contact [facility] or [facility], or go to the nearest emergency room, if patient is ever a danger to self/others, or unable to care for self. Recommend that upon discharge patient establish medication management treatment with a psychiatric provider, establishes routine therapy appointments, and follow-up with primary care provider. Verify patient understands and agrees to these recommendations. 03/31/18 08:23 Subjective: Following up with patient for evaluation of psychosis and safety. Patient reports, "Doing okay. Just wanting to know when will be leaving here?" Patient reports no side effects from current medications, and agrees to continue current medications, agrees to increase Risperidone M-tab to 4 mg SL QD. Objective: Vital Signs Temp Pulse Resp BP Pulse Ox 36.8 C 120 H 16 136/85 H 94 03/19/18 23:05 03/22/18 06:00 03/22/18 06:00 03/22/18 06:00 03/22/18 06:00 NURSING REPORT: Consulted with nursing for update on patients progress in treatment. Nurses report patient is not engaged in treatment, is not attending groups, slept 8 hours, expresses the following psychiatric symptoms: severe anxiety, exhibits the following psychiatric symptoms: paranoid, withdrawn; is eating all meals; staff reports patient continues to urinate in urinal and store in room; is agreeable to medications and taking as prescribed with no report of side effects, with no s/s of EPS/akathisia, and denies SI/HI, denies A /V hallucinations, and denies delusions. FAMILY MEETING WITH MOP: scheduled for 04/01/18. RN FROM 03/30/18: Patient still withdrawn to room and urinating in cup or hand- held urinal. Patient eating in dining, eating >75% of meal. Mood is less tense and patient more conversant with staff and peers. MSE: The patient is a well-nourished male looking stated chronological age. Attire is appropriate and dress is casual. Grooming status is appropriate. Ambulation is independent. Gait is normal and coordinated. Posture is normal and relaxed. Eye contact is inappropriate and avoided. Motor activity is appropriate with purposeful, organized, coordinated movements; with no involuntary movements. Attitude is uncooperative. Patient appears distractible and does not relate well to this interviewer. Language production is spontaneous. R/R/V normal. Articulation is clear, with irritable. Patient reports mood as okay, with incongruent, constricted affect. Patients thought process non-linear and illogical, disorganized. Patient does not report suicidal/homicidal thoughts, ideas, or plans. Patient denies auditory, visual hallucinations. Patient reports delusions. Patient does appear to be attending to internal stimuli. Patients attention and concentration are poor. Patient is oriented to person, place, and time. Patient appears to be a poor historian. Patients insight and judgment poor. - Time Spent With Patient Time Spent With Patient: 15 minutes, met with patient individually. - Pending Discharge Pending Discharge Within 24 Hours: No Pending Discharge Within 48 Hours: No ICD10 Worksheet Patient Problems: Problems Problem Status Onset Psychosis Acute
[2018-03-31] MEDS: RISPERIDONE 1 MG ODT TAB SL SCH (08:51)
--- NOTE | 2018-03-31 13:30 | ASMTCMCOM ---
CM Note CM Note Notes: CC was able to confirm client's insurance information and pass it along to FC. Also, confirmed family meeting for client, parents, CC and provider for tomorrow at noon. Client is still isolating some, doing a bit better; however, still requires in-patient level of care. Date Signed: 03/31/2018 01:28 PM Electronically Signed By:Fredy Espinoza
[2018-03-31] MEDS: risperiDONE 0.5 MG TAB PO PRN (20:13)
[2018-03-31] MEDS: MELATONIN 3 MG TAB PO PRN (20:13)
[2018-04-01] MEDS: RISPERIDONE 1 MG ODT TAB SL SCH (08:15)
--- NOTE | 2018-04-01 08:30 | SOAPPROG ---
SOAP Progress Note Assessment/Plan: Assessment: Unspecified Psychosis. R/O Schizophrenia. Slight improvement noted. (see subjective/objective note). Patient is not safe to discharge at this time as patient continues to exhibit signs of psychosis, and express psychosis symptoms. Patient requires continued inpatient care because of current psychosis, and requires inpatient level of care to stabilize in order to no longer be gravely disabled due to mental illness. Patient could benefit from continued inpatient hospitalization for crisis stabilization, safety, and medication evaluation. Patient exhibits inability to provide for himself, unable communicate his basic needs, neglecting self-care, withdrawn from social interactions, inability to test reality, and currently shows inability to maintain any appropriate aspect of personal responsibility as an adult. Plan: 1. Psychotropic medications: After reviewing options, risks, and benefits patient agrees to continue current medications. No medication changes at this time as more time is needed to determine ongoing tolerability and efficacy. Plan is to continue to observe patient for response and side effects from medications, and ongoing monitoring and evaluation. 2. Review with patient informed consent and recommendations for psychotropic medication treatment listed below 3. Labs: no additional labs at this time 4. Therapy: continue milieu and group therapy 5. Further investigation including gathering information from patients relatives and review of past case records to inform treatment plan. 6. Safety/Wellness plan and follow-up outpatient appointments to be established prior to discharge. Next steps are for patient to meet with career advisor to plan a safe discharge plan and establish outpatient services for ongoing treatment. 7. Confer with inpatient treatment team regarding treatment plan. 8. Psychosocial stressors addressed through nurse case management 9. Legal status: [facility] 10. Consider discharge next week if patient is in stable condition, safe, and has a safe discharge plan. PSYCHOTROPIC MEDICATION TREATMENT INFORMED CONSENT and RECOMMENDATIONS: Review nature of condition, diagnosis, and prognosis. Review nature and purpose of psychotropic medication treatment. Review type of psychotropic medications being ordered. Review risk and benefits of psychotropic medication treatment. Review probable length of time patient will need to take medications. Review risk and benefits of not undergoing psychotropic medication treatment. Review alternative treatments to psychotropic medications. Review psychotropic medications contraindications, drug-drug interactions, side effects, and importance of reporting any side effects to a psychiatric provider or nurse during inpatient hospitalization, and upon discharge to patients psychiatric outpatient provider, primary care provider, or other health medicare biller. Review importance of asking a nurse, psychiatric provider, or primary care provider any questions or problems concerning the psychotropic medications. Verify patient understands the information that has been provided, and understands, accepts, and agrees to psychotropic medications. Review patients safety plan and importance of patient to report to staff while hospitalized if patient is ever a danger to self/others, or unable to care for self, and upon discharge, the importance for patient to contact [facility] or [facility], or go to the nearest emergency room, if patient is ever a danger to self/others, or unable to care for self. Recommend that upon discharge patient establish medication management treatment with a psychiatric provider, establishes routine therapy appointments, and follow-up with primary care provider. Verify patient understands and agrees to these recommendations. 04/01/18 08:28 Subjective: Following up with patient for evaluation of psychosis and safety. Patient reports, "Doing okay. Look forward to meeting with my mom today, I miss her." Patient reports no side effects from current medications, and agrees to continue current medications. Patient reports he is not interested in [facility], and agrees to continue oral Risperidone after discharge. Objective: Vital Signs Temp Pulse Resp BP Pulse Ox 36.8 C 120 H 16 136/85 H 94 03/19/18 23:05 03/22/18 06:00 03/22/18 06:00 03/22/18 06:00 03/22/18 06:00 NURSING REPORT: Consulted with nursing for update on patients progress in treatment. Nurses report patient is not engaged in treatment, is not attending groups, slept 8 hours, expresses the following psychiatric symptoms: severe anxiety, exhibits the following psychiatric symptoms: paranoid, withdrawn; is eating all meals; staff reports patient continues to urinate in urinal and store in room; is agreeable to medications and taking as prescribed with no report of side effects, with no s/s of EPS/akathisia, and denies SI/HI, denies A /V hallucinations, and denies delusions. RN FROM 03/31/18: Willian remains very calm, visible on milieu. Came to nursing station, at own volition, and asked for evening meds. Took them with a full glass of water, then stood there conversing with staff for a few additional minutes. No attempt to cheek meds, or pocket them, noted. FAMILY MEETING: This CORK FLOOR INSTALLER and patient to meet with patients mother today to assess readiness to discharge, review treatment plan, goals for hospitalization , and discharge plan. MSE: The patient is a well-nourished male looking stated chronological age. Attire is appropriate and dress is casual. Grooming status is appropriate. Ambulation is independent. Gait is normal and coordinated. Posture is normal and relaxed. Eye contact is inappropriate and avoided. Motor activity is appropriate with purposeful, organized, coordinated movements; with no involuntary movements. Attitude is cooperative. Patient appears attentive and relates well to this interviewer. Language production is spontaneous. R/R/V normal. Articulation is clear with appropriate tone. Patient reports mood as okay with congruent affect. Patients thought process linear and illogical with no signs of formal thought disorder. Patient continues to present paranoid; suspicious. Patient does not report suicidal/homicidal thoughts, ideas, or plans. Patient denies auditory, visual hallucinations. Patient reports delusions. Patient does appear to be attending to internal stimuli. Patients attention and concentration are poor. Patient is oriented to person, place, and time. Patient appears to be a poor historian. Patients insight and judgment poor. - Time Spent With Patient Time Spent With Patient: 15 minutes, met with patient individually. - Pending Discharge Pending Discharge Within 24 Hours: No Pending Discharge Within 48 Hours: No ICD10 Worksheet Patient Problems: Problems Problem Status Onset Psychosis Acute
[2018-04-01] MEDS ORDERED: PALIPERIDONE PALMITATE 234 MG/1.5 ML SYR IM ONE ×2 (09:00→12:26)
[2018-04-01] MEDS: LORazepam 1 MG TAB PO PRN (11:12)
--- NOTE | 2018-04-01 12:46 | ASMTBHDC ---
Notes Note: Notes: Client presented well in family meeting today with parents, CC and provider. Client agreed to take Invega injection, etc. CC refaxed all necessary ppw to [facility] at . CC called [facility] at to schedule client's intake appts, etc. They noted for CC to "re-fax everything, and call back on or Saturday because they only schedule 24-hours from discharge from a hospital." Family has agreed to take client back home with meds, etc. and the proper follow up.* Date Signed: 04/01/2018 12:46 PM Electronically Signed By:Fredy Espinoza
[2018-04-01] MEDS: ACETAMINOPHEN 325 MG TAB PO PRN (13:29)
--- NOTE | 2018-04-01 15:12 | ASMTBHDC ---
Notes Note: Notes: CC was able to confirm client's intake appt with Adela at [facility]: Follow up with: [facility] [address] [address] PH- FAX- Intake Appt: Scheduled with Adela on SaturdayApril 08 (04/08/18) at 2pm. Additional Resources: [facility] Address: [address] [place] [id number] Hours: Open 24 hours Drop-In Center: Open every day of the year 12:30PM 5:00PM Overnight Emergency Snf: Open every night of the year 5:00PM 8:00AM Date Signed: 04/01/2018 03:11 PM Electronically Signed By:Fredy Espinoza
[2018-04-01] MEDS: MELATONIN 3 MG TAB PO PRN (20:09)
--- NOTE | 2018-04-02 08:11 | SOAPPROG ---
SOAP Progress Note Assessment/Plan: Assessment: Unspecified Psychosis. R/O Schizophrenia. Slight improvement noted. (see subjective/objective note). Patient is not safe to discharge at this time as patient continues to exhibit signs of psychosis, and express psychosis symptoms. Patient requires continued inpatient care because of current psychosis, and requires inpatient level of care to stabilize in order to no longer be gravely disabled due to mental illness. Patient could benefit from continued inpatient hospitalization for crisis stabilization, safety, and medication evaluation. Patient exhibits inability to provide for himself, unable communicate his basic needs, neglecting self-care, withdrawn from social interactions, inability to test reality, and currently shows inability to maintain any appropriate aspect of personal responsibility as an adult. Plan: 1. Psychotropic medications: After reviewing options, risks, and benefits patient agrees to continue current medications. No medication changes at this time as more time is needed to determine ongoing tolerability and efficacy. Plan is to continue to observe patient for response and side effects from medications, and ongoing monitoring and evaluation. 2. Review with patient informed consent and recommendations for psychotropic medication treatment listed below 3. Labs: no additional labs at this time 4. Therapy: continue milieu and group therapy 5. Further investigation including gathering information from patients relatives and review of past case records to inform treatment plan. 6. Safety/Wellness plan and follow-up outpatient appointments to be established prior to discharge. Next steps are for patient to meet with home care manager to plan a safe discharge plan and establish outpatient services for ongoing treatment. 7. Confer with inpatient treatment team regarding treatment plan. 8. Psychosocial stressors addressed through case aide 9. Legal status: [facility] 10. Consider discharge next week if patient is in stable condition, safe, and has a safe discharge plan. PSYCHOTROPIC MEDICATION TREATMENT INFORMED CONSENT and RECOMMENDATIONS: Review nature of condition, diagnosis, and prognosis. Review nature and purpose of psychotropic medication treatment. Review type of psychotropic medications being ordered. Review risk and benefits of psychotropic medication treatment. Review probable length of time patient will need to take medications. Review risk and benefits of not undergoing psychotropic medication treatment. Review alternative treatments to psychotropic medications. Review psychotropic medications contraindications, drug-drug interactions, side effects, and importance of reporting any side effects to a psychiatric provider or nurse during inpatient hospitalization, and upon discharge to patients psychiatric outpatient provider, primary care provider, or other health home care consultant. Review importance of asking a nurse, psychiatric provider, or primary care provider any questions or problems concerning the psychotropic medications. Verify patient understands the information that has been provided, and understands, accepts, and agrees to psychotropic medications. Review patients safety plan and importance of patient to report to staff while hospitalized if patient is ever a danger to self/others, or unable to care for self, and upon discharge, the importance for patient to contact [facility] or [facility], or go to the nearest emergency room, if patient is ever a danger to self/others, or unable to care for self. Recommend that upon discharge patient establish medication management treatment with a psychiatric provider, establishes routine therapy appointments, and follow-up with primary care provider. Verify patient understands and agrees to these recommendations. 04/01/18 08:28 Subjective: Following up with patient for evaluation of psychosis and safety. Patient reports, "Doing okay." Patient reports no side effects from current medications , and agrees to continue current medications. Patient agrees to Invega Sustenna second loading dose 156 mg IM on Saturday prior to discharge. Patient agrees to sign-in for voluntary hospitalization. Objective: Vital Signs Temp Pulse Resp BP Pulse Ox 36.8 C 103 H 16 120/62 95 04/01/18 13:15 04/01/18 13:15 04/01/18 13:15 04/01/18 13:15 04/01/18 13:15 NURSING REPORT: Consulted with nursing for update on patients progress in treatment. Nurses report patient is not engaged in treatment, is not attending groups, slept 8 hours, expresses the following psychiatric symptoms: moderate anxiety, exhibits the following psychiatric symptoms: paranoid, withdrawn; is eating all meals; staff reports patient continues to urinate in urinal and store in room; is agreeable to medications and taking as prescribed with no report of side effects, with no s/s of EPS/akathisia, and denies SI/HI, denies A /V hallucinations, and denies delusions. MSE: The patient is a well-nourished male looking stated chronological age. Attire is appropriate and dress is casual. Grooming status is appropriate. Ambulation is independent. Gait is normal and coordinated. Posture is normal and relaxed. Eye contact is inappropriate and avoided. Motor activity is appropriate with purposeful, organized, coordinated movements; with no involuntary movements. Attitude is cooperative. Patient appears attentive and relates well to this interviewer. Language production is spontaneous. R/R/V normal. Articulation is clear with appropriate tone. Patient reports mood as okay with congruent affect. Patients thought process linear and illogical with no signs of formal thought disorder. Patient continues to present paranoid; suspicious. Patient does not report suicidal/homicidal thoughts, ideas, or plans. Patient denies auditory, visual hallucinations. Patient denies delusions. Patient does appear to be attending to internal stimuli. Patients attention and concentration are poor. Patient is oriented to person, place, and time. Patient appears to be a poor historian. Patients insight and judgment poor. - Time Spent With Patient Time Spent With Patient: 15 minutes, met with patient individually. - Pending Discharge Pending Discharge Within 24 Hours: No Pending Discharge Within 48 Hours: Yes Pending Discharge Date: 04/04/18 Pending Discharge Time: 11:00 ICD10 Worksheet Patient Problems: Problems Problem Status Onset Psychosis Acute
[2018-04-02] MEDS: ACETAMINOPHEN 325 MG TAB PO PRN (08:45)
[2018-04-02] MEDS: RISPERIDONE 1 MG ODT TAB SL SCH (08:47)
[2018-04-02] MEDS: RISPERIDONE 2 MG ODT TAB SL SCH ×2 (20:21→20:57)
[2018-04-02] MEDS: MELATONIN 3 MG TAB PO PRN (20:57)
--- NOTE | 2018-04-03 07:42 | SOAPPROG ---
SOAP Progress Note Assessment/Plan: Assessment: Schizophrenia. Slight improvement noted. (see subjective/objective note). Patient is not safe to discharge at this time as patient continues to exhibit signs of psychosis, and express psychosis symptoms. Patient requires continued inpatient care because of current psychosis, and requires inpatient level of care to stabilize in order to no longer be gravely disabled due to mental illness. Patient could benefit from continued inpatient hospitalization for crisis stabilization, safety, and medication evaluation. Patient exhibits inability to provide for himself, unable communicate his basic needs, neglecting self-care, withdrawn from social interactions, inability to test reality, and currently shows inability to maintain any appropriate aspect of personal responsibility as an adult. Patient could benefit from HALL prior to discharge to improve adherence with second loading dose Invega Sustenna tomorrow with plan to discharge after. Plan: 1. Psychotropic medications: After reviewing options, risks, and benefits patient agrees to continue current medications; agrees change Risperidone M-tab to 2 mg QAM. No medication changes at this time as more time is needed to determine ongoing tolerability and efficacy. Plan is to continue to observe patient for response and side effects from medications, and ongoing monitoring and evaluation. 2. Review with patient informed consent and recommendations for psychotropic medication treatment listed below 3. Labs: no additional labs at this time 4. Therapy: continue milieu and group therapy 5. Further investigation including gathering information from patients relatives and review of past case records to inform treatment plan. 6. Safety/Wellness plan and follow-up outpatient appointments to be established prior to discharge. Next steps are for patient to meet with health care facility administrator to plan a safe discharge plan and establish outpatient services for ongoing treatment. 7. Confer with inpatient treatment team regarding treatment plan. 8. Psychosocial stressors addressed through continuous pillowcase cutter 9. Legal status: [facility] 10. Consider discharge Saturday if patient is in stable condition, safe, and has a safe discharge plan. 11. Substance abuse intervention: cannabis PSYCHOTROPIC MEDICATION TREATMENT INFORMED CONSENT and RECOMMENDATIONS: Review nature of condition, diagnosis, and prognosis. Review nature and purpose of psychotropic medication treatment. Review type of psychotropic medications being ordered. Review risk and benefits of psychotropic medication treatment. Review probable length of time patient will need to take medications. Review risk and benefits of not undergoing psychotropic medication treatment. Review alternative treatments to psychotropic medications. Review psychotropic medications contraindications, drug-drug interactions, side effects, and importance of reporting any side effects to a psychiatric provider or nurse during inpatient hospitalization, and upon discharge to patients psychiatric outpatient provider, primary care provider, or other health child care provider. Review importance of asking a nurse, psychiatric provider, or primary care provider any questions or problems concerning the psychotropic medications. Verify patient understands the information that has been provided, and understands, accepts, and agrees to psychotropic medications. Review patients safety plan and importance of patient to report to staff while hospitalized if patient is ever a danger to self/others, or unable to care for self, and upon discharge, the importance for patient to contact [facility] or [facility], or go to the nearest emergency room, if patient is ever a danger to self/others, or unable to care for self. Recommend that upon discharge patient establish medication management treatment with a psychiatric provider, establishes routine therapy appointments, and follow-up with primary care provider. Verify patient understands and agrees to these recommendations. 04/03/18 07:42 Subjective: Following up with patient for evaluation of psychosis and safety. Patient reports, "Doing okay, just feel tired." Patient reports no side effects from current medications, and agrees to continue current medications. Patient agrees to Invega Sustenna second loading dose 156 mg IM on Saturday prior to discharge. Patient agrees to continue voluntary hospitalization. Patient reports refusing HS Risperidone due to feeling too tired. Educate patient on importance of taking medications as prescribed. Patient agrees to take Risperidone M-tab 2 mg SL this AM. Objective: Vital Signs Temp Pulse Resp BP Pulse Ox 36.8 C 89 17 126/78 H 95 04/01/18 13:15 04/02/18 16:00 04/02/18 16:00 04/02/18 16:00 04/02/18 16:00 NURSING REPORT: Consulted with nursing for update on patients progress in treatment. Nurses report patient is not engaged in treatment, is not attending groups, slept 8 hours, expresses the following psychiatric symptoms: moderate anxiety, exhibits the following psychiatric symptoms: paranoid, withdrawn; is eating all meals; staff reports patient continues to urinate in urinal and store in room; is agreeable to medications and taking as prescribed with no report of side effects, with no s/s of EPS/akathisia, and denies SI/HI, denies A /V hallucinations, and denies delusions. SUBSTANCE ABUSE BRIEF INTERVENTION: Brief intervention regarding the risks of cannabis abuse is provided to patient with goal to reduce the risk of harm that could result from the continued use of cannabis, with the general aim to investigate the problem, raise awareness of problem, develop a solution with the patient, recommend a specific change or activity, and motivate the patient toward change. Assess substance abuse behavior and give supportive advice about harm reduction, recommend a reduction in hazardous/at-risk consumption patterns, and facilitate referrals for additional specialized treatment with customer care representative. Intermediate goal is for the patient to quit and attend outpatient substance abuse treatment. Intervention focus on intermediate goals to allow for more immediate success in the treatment process to keep the patient motivated. Review following with patient: Cannabis use risks: Short- term use: impaired short-term memory, impaired motor coordination, altered judgement, in high doses paranoia and psychosis. Long-term use addiction, diminished life satisfaction and achievement, symptoms of chronic bronchitis, and increased risk of chronic psychosis disorders if predisposition to such disorders. In withdrawal anger, aggression irritability, anxiety and nervousness, decreased appetite or weight loss, restlessness, and sleep difficulties with strange dreams. OUTPATIENT SUBSTANCE ABUSE TREATMENT: Patient referred to outpatient provider and treatment for continued treatment related to substance abuse. MSE: The patient is a well-nourished male looking stated chronological age. Attire is appropriate and dress is casual. Grooming status is appropriate. Ambulation is independent. Gait is normal and coordinated. Posture is normal and relaxed. Eye contact is appropriate. Motor activity is appropriate with purposeful, organized, coordinated movements; with no involuntary movements. Attitude is cooperative. Patient appears attentive and relates well to this interviewer. Language production is spontaneous. R/R/V normal. Articulation is clear with appropriate tone. Patient reports mood as okay with congruent affect. Patients thought process linear and logical with no signs of formal thought disorder. Patient continues to present paranoid; suspicious. Patient does not report suicidal/homicidal thoughts, ideas, or plans. Patient denies auditory, visual hallucinations. Patient denies delusions. Patient does appear to be attending to internal stimuli. Patients attention and concentration are poor. Patient is oriented to person, place, and time. Patient appears to be a poor historian. Patients insight and judgment poor. - Time Spent With Patient Time Spent With Patient: 15 minutes, met with patient individually. - Pending Discharge Pending Discharge Within 24 Hours: Yes Pending Discharge Within 48 Hours: No Pending Discharge Date: 04/04/18 Pending Discharge Time: 11:00 ICD10 Worksheet Patient Problems: Problems Problem Status Onset Psychosis Acute
[2018-04-03] MEDS ORDERED: RISPERIDONE 2 MG ODT TAB SL SCH (09:00)
[2018-04-03] MEDS: RISPERIDONE 2 MG ODT TAB SL SCH ×2 (09:07→09:13)
[2018-04-03] MEDS: LORazepam 1 MG TAB PO PRN (19:00)
[2018-04-03 21:10] VITALS: BP 128/69
[2018-04-04] MEDS ORDERED: PALIPERIDONE PALMITATE 156 MG/ML SYR IM ONE ×2 (09:00)
--- NOTE | 2018-04-04 13:22 | BDS ---
[f rep st] BEHAVIORAL HEALTH DISCHARGE SUMMARY REASON FOR ADMISSION: From the ED note dated 03/19/2018, the patient presented on a court-ordered M1 hold as the patient appeared to be mentally ill and gravely disabled. The patient's father reportedly became increasingly concerned about the patient. The patient had dropped out of high school, as well as online school. The patient threatened to jump off a 3rd floor balcony to kill himself and kill the family dog with him. Patient reportedly urinating in bottles and hoarding them around his parents' home. The patient reported hallucinations. The patient was deemed gravely disabled. His family was scared , reported to be threatened by him and severely paranoid. The patient was admitted involuntarily on an M1 hold due to being gravely disabled. The patient was admitted for safety, crisis stabilization, and medication management. ADMITTING DIAGNOSES: 1. Schizophrenia. 2. Cannabis use disorder, severe. ADMISSION PHYSICAL EXAM: The patient was seen for history and physical consultation on 03/20/2018 for medical clearance for inpatient psychiatric hospitalization and treatment. The patient was medically cleared for inpatient psychiatric hospitalization and treatment. For further details, please refer to consultation note dated 03/20/2018. ADMISSION LABS: 1. CBC within normal limits except eosinophils were low at 0.3, absolute eosinophils were low at 0.02. 2. BMP within normal limits. 3. Hemoglobin A1c within normal limits at 5.2. 4. Liver function within normal limits. 5. Lipid panel within normal limits. 6. Urine within normal limits. 7. Toxicology screen non-negative for THC, negative for all other substances screened, and negative for ethyl alcohol. MAJOR PROCEDURES OR TESTS: None. HOSPITAL COURSE: The most prominent symptoms and behaviors while the patient was here were paranoia. The patient appeared suspicious, withdrawn from social interactions. The patient was easily agitated, reported severe anxiety. Treatment modalities utilized were milieu and group therapy. Zyprexa Zydis was started and titrated to 15 mg p.o. q.h.s. to target psychosis symptoms, was tolerated with no report of side effects and with poor response. Zyprexa was tapered and discontinued. Risperdal M-Tab was started to target psychosis symptoms, was titrated to 4 mg p.o. daily, was tolerated with no report of side effects and with good response. The patient agreed to Invega Sustenna long- acting injectable. Invega Sustenna 234 mg IM was administered on 04/01/2018, was tolerated with no report of side effects. Invega Sustenna 156 mg IM second loading dose was administered on 04/04/2018, was tolerated with no report of side effects and with good response. Patient has improved considerably with no signs of psychiatric symptoms and no psychiatric symptoms expressed. Patient reports he has improved since admission, states to be in stable condition, feels safe to discharge, and he contracts for safety. Patients response to treatment was good. There were no adverse or unexpected results of treatment. The patient was safe throughout stay, active in treatment, engaged in groups, and was appropriate with staff. Patient met with treatment team prior to discharge to assess readiness to discharge and review discharge plan. The treatment team consensus is the patient in stable condition, has a safe discharge plan, and is ready to discharge today. CONDITION AT DISCHARGE: Patient is in stable condition and is no longer a danger to self or others, and is not gravely disabled due to mental illness. Patient is no longer in need of inpatient level of care, and can be safely and effectively treated within the community. The patients level of risk at time of discharge is low. MSE: The patient is casually dressed and with good hygiene , and looks stated age. Patient is sitting, posture is upright, and position is relaxed. Patient appears awake, alert, and responds appropriately and reasonably during interview. Patient is engaged, relates well to interviewer, and emotional facial expression is appropriate to situation and changes appropriately with topic. Patient is cooperative, makes comfortable eye contact , and movements are voluntary, deliberate, coordinated, and smooth and even with no inappropriate movements. Patient makes laryngeal sounds effortlessly and shares conversation appropriately; pace of conversation is appropriate, and stream of talking is fluent; articulation is clear and understandable; word choice is effortless and appropriate for education level; completes sentences, occasionally pausing to think; rate and volume are appropriate for interview and setting. Patient reports mood as euthymic. Patients affect is stable with full variable range, congruent with mood, and appropriate to speech and circumstances. Patient has linear and logical thinking, with no loose associations, tangential thought, thought blocking, concrete thinking, or any other signs of formal thought disorder. Patient denies suicidal and homicidal ideation, and denies hallucinations and delusions. Patient appears to be a reliable historian with sound judgement and good insight into current condition. Patient has no apparent dysfunction in recent or remote memory noted , and no evidence of gross cognitive dysfunction noted at any point during the interview. DISCHARGE DIAGNOSES: 1. Schizophrenia. 2. Cannabis use disorder, severe. CURRENT MEDICATIONS: After reviewing options, risks, and benefits with the patient, patient agrees to continue: 1. Invega Sustenna. Patient to follow up with outpatient provider for ongoing maintenance of Invega Sustenna with next Invega Sustenna IM dose due 2018. 2. Ativan 1 mg p.o. twice daily p.r.n. Patient requests prescription for Ativan at time of discharge, and a prescription for 30 days is provided. The prescription is reviewed with the patient at time of discharge to ensure accuracy and patient understanding. During family meeting with the patient's parents, patient's parents reported that they would dispense the Ativan as needed to the patient and patient agrees with this plan. DISPOSITION: Patient left hospital independently and voluntarily with his mother. FOLLOWUP: pharmacy intake coordinator reports the appropriate outpatient follow-up services have been established and outpatient appointments have been scheduled. The patient received written instructions with times and dates of outpatient follow-up appointments. The following follow-up recommendations were provided to the patient at discharge: Continue psychotropic medications as prescribed and attend appointments as scheduled. Report any side effects to a psychiatric outpatient provider, a primary care provider, or other health career agent. Address any questions or problems concerning the psychotropic medications with a psychiatric outpatient provider, a primary care provider, or other health career agent. Contact [facility] or [facility], or go to the nearest emergency room, if you are ever a danger to yourself/others, or unable to care for yourself. As soon as possible, establish a routine medication management treatment with a psychiatric provider, establish routine therapy appointments, and follow-up with a primary care provider. SUBSTANCE ABUSE BRIEF INTERVENTION: Brief intervention regarding the risks of cannabis abuse is provided to patient with goal to reduce the risk of harm that could result from the continued use of cannabis, with the general aim to investigate the problem, raise awareness of problem, develop a solution with the patient, recommend a specific change or activity, and motivate the patient toward change. Assess substance abuse behavior and give supportive advice about harm reduction, recommend a reduction in hazardous/at-risk consumption patterns, and facilitate referrals for additional specialized treatment with daycare director. Intermediate goal is for the patient to quit and attend outpatient substance abuse treatment. Intervention focus on intermediate goals to allow for more immediate success in the treatment process to keep the patient motivated. Review following with patient: Cannabis use risks: Short- term use: impaired short-term memory, impaired motor coordination, altered judgement, in high doses paranoia and psychosis. Long-term use addiction, diminished life satisfaction and achievement, symptoms of chronic bronchitis, and increased risk of chronic psychosis disorders if predisposition to such disorders. In withdrawal anger, aggression irritability, anxiety and nervousness, decreased appetite or weight loss, restlessness, and sleep difficulties with strange dreams. OUTPATIENT SUBSTANCE ABUSE TREATMENT: Patient referred to outpatient provider and treatment for continued treatment related to substance abuse. LEGAL COURSE: The patient was admitted involuntarily on an M1 hold. Patient was placed on a short-term certification during the course of his hospitalization. Patient then signed in for voluntary hospitalization. The patient discharged today independently and voluntarily. ATTITUDE AT TIME OF DISCHARGE: The patients attitude was positive at time of discharge, and patient reports looking forward to discharging today. The patient reports he feels safe to discharge, is no longer a danger to himself or others, is in stable condition, and contracts for safety. Patient states he will continue medications as prescribed, and establish medication management treatment with an outpatient provider after discharge. Patient reports he understands the information that has been provided to him, and he understands, accepts, and agrees to psychotropic medications. Patient describes internal protective factors as the coping skills he has learned while hospitalized here, and he plans to continue to practice these coping skills after discharge. LABS AND RADIOLOGY STUDIES: There were no pending labs or studies at time of discharge. ADVANCE DIRECTIVES: There were no advance directives on file, and patient was full code during this hospitalization. The following psychotropic medication treatment informed consent and recommendations were provided to the patient at time of discharge. Patient reports he understands, accepts, and agrees to the information that has been provided. PSYCHOTROPIC MEDICATION TREATMENT INFORMED CONSENT and RECOMMENDATIONS: Review nature of condition, diagnosis, and prognosis. Review nature and purpose of psychotropic medication treatment. Review type of psychotropic medications being prescribed. Review risk and benefits of psychotropic medication treatment. Review probable length of time will need to take medications. Review risk and benefits of not undergoing psychotropic medication treatment. Review alternative treatments to psychotropic medications. Review psychotropic medications contraindications, side effects, and importance of reporting any side effects to a psychiatric provider, primary care provider, or other health career agent. Review importance of asking a psychiatric provider or primary care provider any questions or problems concerning the psychotropic medications. Review safety plan and the importance to contact [facility] or [facility] , or go to the nearest emergency room, if ever a danger to yourself/others, or unable to care for yourself. Recommend upon discharge to establish routine medication management treatment with a psychiatric provider, establish routine therapy appointments, and follow-up with a primary care provider. Verify patient understands, accepts, and agrees to the information that has been provided. /[id number]
== END 2018-04-04 11:35 | disposition home or self-care (01) | DRG 885 ==
LOC: BBEH 22:47
PROVIDERS: ADMIT Psychiatry & Neurology Psychiatry; ATTEND Psychiatry & Neurology Psychiatry
DX: F20.9 Schizophrenia, unspecified (principal); F12.951 Cannabis use, unspecified with psychotic disorder with hallucinations
CPT/HCPCS: 80305; G0480; J2426